=== PATIENT | female | born 1970 | race African-American/Black ===

== ENCOUNTER 2022-05-30 10:01 | Outpatient (CLI) | payer OTHER, SELFPAY | END 2022-05-30 10:02 | disposition home or self-care (01) | PROVIDERS: PCP Family Medicine; Visit Provider Internal Medicine | DX: Z12.11 Encounter for screening for malignant neoplasm of colon (principal); K64.8 Other hemorrhoids; K57.30 Diverticulosis of large intestine without perforation or abscess without bleeding | CPT/HCPCS: 45378; J2250; J3010 ==

== ENCOUNTER 2023-04-22 13:25 | Outpatient (CLI) | payer OTHER, SELFPAY | END 2023-04-22 13:26 | disposition home or self-care (01) | PROVIDERS: PCP Family Medicine; Visit Provider Emergency Medicine | DX: Z00.00 Encounter for general adult medical examination without abnormal findings (principal); E78.5 Hyperlipidemia, unspecified; R73.03 Prediabetes; R53.83 Other fatigue | CPT/HCPCS: 80053; 80061; 82306; 83001; 84443 ==

== ENCOUNTER 2023-05-12 18:54 | Outpatient (CLI) | payer OTHER, SELFPAY | END 2023-05-12 18:55 | disposition home or self-care (01) | PROVIDERS: PCP Family Medicine; Visit Provider Emergency Medicine | DX: D72.819 Decreased white blood cell count, unspecified (principal) | CPT/HCPCS: 82607; 82746; 85045 ==

== ENCOUNTER 2023-07-21 09:14 | Outpatient (CLI) | payer OTHER, SELFPAY ==
--- NOTE | 2023-07-21 09:15 | MM_ITS ---
Patient: MERRICK ROBLEDO Facility:?[facility] Patient ID:?[id number] Site Patient ID:?[id number]. Site :?1970 Study:?XRay-Breast Bilateral 3D W/CAD-07/21/2023 12:51:11 PM Ordering Physician:?Mary Jane Johnson Final Report: BILATERAL DIGITAL SCREENING MAMMOGRAM WITH TOMOSYNTHESIS AND COMPUTER-AIDED DETECTION CLINICAL HISTORY: Routine screening exam. COMPARISON: 12/23/2021, 12/26/2020, 02/18/2019. TECHNIQUE: Digital mammogram in CC and MLO projections including computer-aided detection (CAD). Tomosynthesis utilized. BREAST COMPOSITION: The breasts are heterogeneously dense, which may obscure small masses. FINDINGS: RIGHT Breast: No suspicious findings. LEFT Breast: Nodular density within the lower outer quadrant 9 cm from the nipple. IMPRESSION: LEFT breast asymmetry/mass. RECOMMENDATIONS: Additional mammographic views of the LEFT breast including 3D spot compression CC/MLO. LEFT breast ultrasound may also be required. BI-RADS Category 0: Incomplete: Need Additional Imaging Evaluation and/or Prior Mammograms for Comparison [facility] will contact the patient for follow-up. A lay language report of this examination will be provided to the patient. Dictated by Lloyd Claire MD @ 07/22/2023 12:30:24 PM festus/Dictated by: Lloyd Claire MD @ 07/22/2023 12:30:00 PM Signed by:?Lloyd Claire MD @07/22/2023 2:42:58 PM (Electronic Signature)
== END 2023-07-21 09:15 | disposition home or self-care (01) ==
LOC: MAMMO 09:14
PROVIDERS: PCP Family Medicine; Visit Provider Emergency Medicine
DX: Z12.31 Encounter for screening mammogram for malignant neoplasm of breast (principal); N63.20 Unspecified lump in the left breast, unspecified quadrant; R92.2 Inconclusive mammogram
CPT/HCPCS: 77063; 77067

== ENCOUNTER 2023-08-10 09:52 | Outpatient (CLI) | payer OTHER, SELFPAY ==
--- NOTE | 2023-08-10 09:45 | MM_ITS ---
Patient: MERRICK ROBLEDO Facility:?[facility] Patient ID:?[id number] Site Patient ID:?[id number]. Site :?1970 Study:?XRay-Breast Left 3D W/CAD-08/10/2023 10:27:55 AM Ordering Physician:Chirag Final Report: DIGITAL DIAGNOSTIC LEFT MAMMOGRAM USING TOMOSYNTHESIS AND COMPUTER-AIDED DETECTION LEFT BREAST ULTRASOUND CLINICAL HISTORY: LEFT breast mass/asymmetry. COMPARISON: 07/21/2023, 12/23/2021, 12/26/2020, 02/18/2019. TECHNIQUE: Digital LEFT mammogram in two projections. Tomosynthesis and CAD utilized. Real-time ultrasound imaging of LEFT breast with imaging documentation. BREAST COMPOSITION: There are areas of scattered fibroglandular density. FINDINGS: 3D spot compression CC/MLO LEFT breast mammogram images submitted. Persistent nodular density within the lower outer quadrant. No architectural distortion or suspicious calcifications. Targeted LEFT breast ultrasound performed. At 4 o`clock 8 cm from the nipple, there is a simple cyst measuring 4 x 5 x 7 millimeters. No abnormal vascularity. No suspicious findings. IMPRESSION: Benign fibrocystic change LEFT breast 4 o`clock 8 cm from the nipple measuring 7 millimeters. RECOMMENDATIONS: Annual BILATERAL screening mammography. Results and recommendations discussed with the patient. BI-RADS Category 2: Benign A lay language report of this examination will be provided to the patient. Dictated by Lloyd Claire MD @ 08/10/2023 11:14:43 AM jj/Dictated by: Lloyd Claire MD @ 08/10/2023 11:14:00 AM Signed by:?Lloyd Claire MD @08/10/2023 11:26:10 AM (Electronic Signature)
--- NOTE | 2023-08-10 10:15 | US_ITS ---
Patient: MERRICK ROBLEDO Facility:?[facility] Patient ID:?[id number] Site Patient ID:?[id number]. Site :?1970 Study:?US-Breast Left LT BREAST LMT / DR. SOTELO TO READ-08/10/2023 11:06:11 AM Ordering Physician:?ASHU LINO M.D. Final Report: PLEASE SEE DIGITAL DIAGNOSTIC LEFT MAMMOGRAM PERFORMED SAME DAY CRL:festus mortensen/Dictated by: Lloyd Sotelo MD @ 08/10/2023 11:13:00 AM Signed by:?Lloyd Sotelo MD @08/10/2023 11:26:04 AM (Electronic Signature)
== END 2023-08-10 09:53 | disposition home or self-care (01) ==
LOC: MAMMO 09:53
PROVIDERS: PCP Family Medicine; Visit Provider Emergency Medicine
DX: N63.20 Unspecified lump in the left breast, unspecified quadrant (principal); N60.02 Solitary cyst of left breast; R92.8 Other abnormal and inconclusive findings on diagnostic imaging of breast
CPT/HCPCS: 76642; 77065; G0279

== ENCOUNTER 2024-08-24 08:17 | Outpatient (CLI) | payer OTHER, SELFPAY | END 2024-08-24 08:18 | disposition home or self-care (01) | PROVIDERS: PCP Family Medicine; Visit Provider Emergency Medicine | DX: R00.2 Palpitations (principal); E78.2 Mixed hyperlipidemia | CPT/HCPCS: 80048; 80061; 84443 ==

== ENCOUNTER 2024-08-25 08:32 | Outpatient (CLI) | payer OTHER, SELFPAY ==
[2024-08-27 15:16] LABS: HPV Source Cervical; HPV, High Risk by TMA Not Detected
== END 2024-08-25 08:33 | disposition home or self-care (01) ==
PROVIDERS: PCP Family Medicine; Visit Provider Emergency Medicine
DX: Z12.4 Encounter for screening for malignant neoplasm of cervix (principal); Z11.51 Encounter for screening for human papillomavirus (HPV)
CPT/HCPCS: 87624; 87625; 88141; 88142

== ENCOUNTER 2024-10-11 17:08 | Outpatient (CLI) | payer OTHER, SELFPAY ==
--- NOTE | 2024-10-11 17:20 | CRLHL7_ITS ---
For Patients: As a result of the Century Cures Act, medical imaging exams and procedure reports are released immediately into your electronic medical record. You may view this report before your referring provider. If you have questions, please contact your health care provider. INDICATION: BILATERAL SCREENING MAMMOGRAM, ASYMPTOMATIC 54Y/F COMPARISON: Baseline TECHNIQUE: Digital mammogram in CC and MLO projections including computer-aided detection (CAD) and tomosynthesis. BREAST COMPOSITION: There are scattered areas of fibroglandular density. FINDINGS: No suspicious findings. ASSESSMENT: BI-RADS 2 Benign RECOMMENDATION: Annual screening mammogram. A lay language report of this examination will be provided to the patient. Dictated by: Lloyd Claire MD @ 10/13/2024 11:56:30 (Electronically Signed)
== END 2024-10-11 17:09 | disposition home or self-care (01) ==
LOC: MAMMO 17:08
PROVIDERS: PCP Family Medicine; Visit Provider Family Medicine
DX: Z12.31 Encounter for screening mammogram for malignant neoplasm of breast (principal)
CPT/HCPCS: 77063; 77067